=== PATIENT | male | born 1955 | race Caucasian/White ===

== ENCOUNTER 2020-05-10 06:59 | Day surgery (SDC) | payer BC ==
[~2020-05-10 06:59] MED LIST: Lactated Ringers 1,000 ML IV SCH; Lidocaine 1%/Sod Bicarbonate in NS 8.4% 1 ML Syringe IDERM PRN; Sodium Chloride 0.9% 10 ML Syringe FLUSH PRN
[2020-05-10] MEDS ORDERED: Midazolam 1 MG/ML 2 ML SDV ONE (07:10)
[2020-05-10] MEDS ORDERED: Propofol 200 MG/20 ML SDV ONE ×3 (07:10→08:35)
[2020-05-10] MEDS ORDERED: fentaNYL 100 MCG/2 ML SDV ONE (07:10)
[2020-05-10] MEDS ORDERED: Lidocaine 1% 4 ML ONE (07:11)
--- NOTE | 2020-05-10 07:31 | PCM.PREANE ---
Preanesthetic Assessment - Procedure Proposed Procedure: Screening Colonoscopy - Anesthesia/Transfusion/Family Hx Anesthesia History: Prior Anesthesia Without Reaction Family History of Anesthesia Reaction: Yes ("Dad did not wake up from heart bypass surgery") Transfusion History: No Prior Transfusion(s) - Review of Systems General: No Symptoms Pulmonary: No Symptoms Cardiovascular: No Symptoms Gastrointestinal: No Symptoms Neurological: Numbness ("feet") Other: Reports: Thyroid Problems (hypothyroid) - Physical Assessment NPO Status Date: 05/09/20 NPO Status Time: 00:00 Height: 1.83 m Weight: 87 kg ASA Class: 2 Mental Status: Alert & Oriented x3 Airway Class: Mallampati = 1 Dentition: Reports: Clayton(s) Thyro-Mental Finger Breadths: 3 Mouth Opening Finger Breadths: 3 ROM/Head Extension: Full Lungs: Clear to Auscultation, Normal Respiratory Effort Cardiovascular: Regular Rate, Regular Rhythm - Allergies Allergies/Adverse Reactions: Allergies Allergy/AdvReac Type Severity Reaction Status Date / Time Penicillins Allergy Cannot Verified 05/09/20 13:07 Remember - Blood Blood Available: No Product(s) Available: None - Anesthesia Plan Pre-Op Medication Ordered: Beta Aditya Beta Aditya: Metoprolol Med Last Dose Date: 05/10/20 Med Last Dose Time: 05:00 - Acknowledgements Anesthesia Type Planned: MAC Pt an Appropriate Candidate for the Planned Anesthesia: Yes Alternatives and Risks of Anesthesia Discussed w Pt/Guardian: Yes Pt/Guardian Understands and Agrees with Anesthesia Plan: Yes PreAnesthesia Questionnaire HEENT History: Reports: Allergic Rhinitis, Impaired Vision, Other (See Below) Other HEENT History: WEARS GLASSES Cardiovascular History: Reports: High Cholesterol, Hypertension Respiratory History: Reports: None Gastrointestinal History: Reports: GERD Other Genitourinary History: SLOW STREAM, PROSTATISM 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 Musculoskeletal History: Reports: None Neurological History: Reports: None Psychiatric History: Reports: None Endocrine/Metabolic History: Reports: Diabetes, Type II, Hypothyroidism, Vitamin D Deficiency Hematologic History: Reports: None Immunologic History: Reports: None Oncologic (Cancer) History: Reports: None Dermatologic History: Reports: None - Infectious Disease History Infectious Disease History: Reports: None - Past Surgical History Head Surgeries/Procedures: Reports: None Cardiovascular Surgical History: Reports: None Respiratory Surgical History: Reports: None GI Surgical History: Reports: Appendectomy, Colonoscopy Female Surgical History: Reports: None Male Surgical History: Reports: None Endocrine Surgical History: Reports: None Neurological Surgical History: Reports: None Musculoskeletal Surgical History: Reports: None Dermatological Surgical History: Reports: None - SUBSTANCE USE Tobacco Use Status *Q: Never Tobacco User Tobacco Use Within Last Twelve Months: No Second Hand Smoke Exposure: No Days Per Week of Alcohol Use: 2 Number of Drinks Per Day: 1 Total Drinks Per Week: 2 Recreational Drug Use History: No - HOME MEDS Home Medications: Home Meds Canagliflozin [Invokana] 100 mg PO DAILY 05/09/20 [History] Cholecalciferol (Vitamin D3) [Vitamin D3] 1,000 unit PO DAILY 05/09/20 [History] Esomeprazole Magnesium [Nexium] 40 mg PO DAILY 05/09/20 [History] Metoprolol Tartrate 25 mg PO BID 05/09/20 [History] atorvaSTATin Calcium [Lipitor] 20 mg PO DAILY 05/09/20 [History] gemfibroziL [Gemfibrozil] 600 mg PO DAILY 05/09/20 [History] hydroCHLOROthiazide [Hydrochlorothiazide] 25 mg PO DAILY 05/09/20 [History] lisinopriL [Lisinopril] 20 mg PO DAILY 05/09/20 [History] metFORMIN HCl [Metformin HCl] 1,000 mg PO BID 05/09/20 [History] - CURRENT (IN HOUSE) MEDS Current Meds: Current Medications Lactated Ringer's (Ringers, Lactated) 1,000 mls @ 125 mls/hr IV ASDIRECTED MARLENY Stop: 05/10/20 23:00 Lidocaine/Sodium Bicarbonate (Buffered Lidocaine 1% In Ns 8.4%) 0.25 ml IDERM ONETIME PRN PRN Reason: Prior to IV Start Stop: 05/10/20 18:00 Sodium Chloride (Saline Flush) 10 ml FLUSH ASDIRECTED PRN PRN Reason: Keep Vein Open Stop: 05/10/20 18:00 Discontinued Medications Fentanyl (Sublimaze) Confirm Administered Dose 100 mcg .ROUTE .STK-MED ONE Stop: 05/10/20 07:11 Lidocaine HCl (Xylocaine-Mpf 1%) Confirm Administered Dose 4 mls @ as directed .ROUTE .STK-MED ONE Stop: 05/10/20 07:12 Midazolam HCl (Versed 1 Mg/Ml) Confirm Administered Dose 2 mg .ROUTE .STK-MED ONE Stop: 05/10/20 07:11 Propofol (Diprivan 20 Ml) Confirm Administered Dose 200 mg .ROUTE .STK-MED ONE Stop: 05/10/20 07:11
--- NOTE | 2020-05-10 08:53 | PCM.PRNOTE ---
- Free Text/Narrative Note: Date: 05/10/2020 Procedure: screening colonoscopy Endoscopist: Weston Chavez MD Findings: prep was very good. 4 polyps identified; two adjacent in cecum, one near splenic flexure which was difficult to access, and one in the proximal sigmoid colon. Detailed Report: The patient was taken to the endoscopy suite and placed in left lateral decubitus position. Time out was performed and monitored anesthesia care initiated. The anus appeared normal. Digital rectal exam revealed slightly enlarged prostate. The colonoscope was inserted and advanced to the cecum. The prep was very good. The appendiceal orifice was seen. Two small sessile polyps with about 2 cm of each other were seen near the appendiceal orifice. These were removed with jumbo forceps and tissue bases were fulgurated. The terminal ileum was intubated. The scope was slowly withdrawn and mucosal surfaces carefully inspected. There was a broad based sessile polyp and the distal side of a mucosal fold near the splenic flexure. a sample was obtained with jumbo forceps. The remaining abnormal appearing tissue was fulgurated. A 1 cm pedunculated polyp was seen in what seemed to be the proximal sigmoid; this was removed piecemeal with jumbo forceps and tissue base was fulgurated. No abnormalities were noted in the rectum on retroflexion. Air was suctioned and the scope was withdrawn. The patient tolerated the procedure well.
--- NOTE | 2020-05-10 08:56 | PCM48HPAN ---
Post Anesthesia Note - EVALUATION WITHIN 48HRS OF ANESTHETIC Vital Signs in Normal Range: Yes Patient Participated in Evaluation: Yes Respiratory Function Stable: Yes Airway Patent: Yes Cardiovascular Function Stable: Yes Hydration Status Stable: Yes Pain Control Satisfactory: Yes Nausea and Vomiting Control Satisfactory: Yes Mental Status Recovered: Yes Vital Signs: Last Vital Signs Temp 36.3 C 05/10/20 07:15 Pulse 69 05/10/20 07:15 Resp 16 05/10/20 07:15 BP 137/79 05/10/20 07:15 Pulse Ox 97 05/10/20 07:15 - COMMENTS/OBSERVATIONS Free Text/Narrative:: no anesthesia complications noted
== END 2020-05-10 09:30 | disposition home or self-care (01) ==
LOC: JD.SDS 06:59
PROVIDERS: ATTEND Surgery
DX: Z12.11 Encounter for screening for malignant neoplasm of colon (principal); D12.0 Benign neoplasm of cecum; D12.4 Benign neoplasm of descending colon; D12.5 Benign neoplasm of sigmoid colon; I10 Essential (primary) hypertension; E78.00 Pure hypercholesterolemia, unspecified; E03.9 Hypothyroidism, unspecified; K21.9 Gastro-esophageal reflux disease without esophagitis; E11.9 Type 2 diabetes mellitus without complications; E55.9 Vitamin D deficiency, unspecified; Z88.0 Allergy status to penicillin; Z79.84 Long term (current) use of oral hypoglycemic drugs; Z79.899 Other long term (current) drug therapy; Z90.49 Acquired absence of other specified parts of digestive tract; Z79.890 Hormone replacement therapy
CPT/HCPCS: 45380; J2250; J2704; J3010; J7120; 00812

== ENCOUNTER 2023-12-05 07:46 | Day surgery (SDC) | payer BC ==
[2023-12-05] MEDS ORDERED: Lactated Ringers 1,000 ML IV ONE (07:47)
[2023-12-05] MEDS ORDERED: Propofol 200 MG/20 ML SDV ONE (08:38)
[2023-12-05] MEDS ORDERED: Midazolam 1 MG/ML 2 ML SDV ONE (08:38)
[2023-12-05] MEDS ORDERED: fentaNYL 100 MCG/2 ML SDV ONE (08:38)
[2023-12-05] MEDS ORDERED: Lidocaine 1% 4 ML ONE (08:39)
[2023-12-05] MEDS ORDERED: Lidocaine 1% PF 2 ML SDV ONE ×2 (08:39)
== END 2023-12-05 10:15 | disposition home or self-care (01) ==
LOC: JD.SDS 07:46
PROVIDERS: ATTEND Surgery
DX: Z12.11 Encounter for screening for malignant neoplasm of colon (principal); D12.0 Benign neoplasm of cecum; K21.9 Gastro-esophageal reflux disease without esophagitis; I10 Essential (primary) hypertension; E78.00 Pure hypercholesterolemia, unspecified; E03.9 Hypothyroidism, unspecified; E11.9 Type 2 diabetes mellitus without complications; Z88.0 Allergy status to penicillin; Z86.010 Personal history of colon polyps; Z79.82 Long term (current) use of aspirin; Z79.899 Other long term (current) drug therapy; Z79.84 Long term (current) use of oral hypoglycemic drugs
CPT/HCPCS: 45380; J2250; J2704; J3010; J7120; 00811; J3490